=== PATIENT | male | born 1935 | race Caucasian/White ===

== ENCOUNTER 2018-05-05 16:21 | Observation (INO) | payer OTHER ==
[2018-05-05] MEDS ORDERED: NA CHLORIDE 0.9% 1,000 ML ONE (16:55)
[2018-05-05 17:17] LABS: Absolute Lymphocytes (CBC) 1.7 K/uL (0.7-4.9); Absolute Monocytes 0.6 K/uL (0.1-1.3); Absolute Neutrophil 6.3 K/uL (1.8-8.0); Basophils % 0.5 % (0-1.3); Eosinophils % 1.1 % (0-4.4); Hematocrit 43.2 % (39.6-49.0); Lymphocytes % 19.6 % (15.3-44.8); MPV 9.5 fL (7.6-11.3); Monocytes % 6.6 % (3.3-12.3); RBC Red Blood Cell Count 5.21 M/uL (4.33-5.43)
[2018-05-05 17:18] LABS: Protime INR 1.26
[2018-05-05 17:22] LABS: ALT/SGPT 35 U/L (12-78); AST/SGOT 23 U/L (15-37); Albumin 3.8 g/dL (3.4-5.0); Alkaline Phosphatase 75 U/L (45-117); BUN Blood Urea Nitrogen 23 mg/dL (7-18); Bicarbonate 25 mmol/L (21-32); Bilirubin Direct 0.1 mg/dL (0-0.2); Bilirubin Total 0.4 mg/dL (0.2-1.0); Glucose Level 120 mg/dL (74-106); Lipase 80 U/L (73-393); Magnesium 2.5 mg/dL (1.8-2.4); NT PRO-BNP 68 pg/mL (<450); Potassium 3.7 mmol/L (3.5-5.1); Protein, Total 7.2 g/dL (6.4-8.2); Sodium Level 140 mmol/L (136-145); Troponin (Emerg Dept Use Only) < 0.02 ng/mL (0.0-0.045)
[2018-05-05] MEDS ORDERED: METOPROLOL TARTRATE 5 MG/5 ML INJ IV ONE (17:22)
[2018-05-05] MEDS ORDERED: METOPROLOL TAR 50 MG TAB ONE (17:22)
--- NOTE | 2018-05-05 17:29 | RAD REPORT ---
EXAM DESCRIPTION: RAD - Chest Single View - 05/05/2018 5:13 pm CLINICAL HISTORY: Weakness, shortness of breath, dizziness, tachycardia COMPARISON: December 2014 TECHNIQUE: AP portable chest image was obtained 1704 hours . FINDINGS: No failure or volume overload seen. No focal lung parenchymal process. Interstitial markin gs are similar to the comparison. Heart size and vasculature are normal range and stable. No measurab le pleural effusion and no pneumothorax. No acute bony abnormality seen. No acute aortic findings iwona pected. IMPRESSION: No acute cardiopulmonary process. No significant change from comparison.
--- NOTE | 2018-05-05 17:34 | EDPHYS ---
Physician Documentation [facility] Name: Brenden Hunter Age: 82 yrs Sex: Male : 1935 Arrival Date: 05/05/2018 Time: 16:27 Bed 7 Private MD: Jonas Potts ED Physician Arturo Mares HPI: 05/05 16:42 This 82 yrs old Male presents to ER via Ambulatory with complaints of High abi heart rate. 16:42 The patient has shortness of breath at rest, with light activity. Onset: The abi symptoms/episode began/occurred just prior to arrival. Duration: The symptoms are continuous, resolved now. The patient's shortness of breath has no apparent modifying factors. The patient or guardian reports chest pain that is located primarily in the racing heart. Onset: just prior to arrival. The patient presents with a history of irregular heart beat. Context: The symptoms occur with light activity. Modifying factors: The symptoms are aggravated by nothing. The symptoms are alleviated by nothing. Historical: - Allergies: 16:34 No Known Allergies; sg - PMHx: 16:31 Atrial Fib; Cancer; Hypertension; MRSA INFECTION; sg - PSHx: 16:31 bladder sx; Hernia repair; SHOULDER REPLACEMENT; sg - Immunization history:: Adult Immunizations. - Social history:: Smoking status: Patient/guardian denies using tobacco. - Ebola Screening: : Patient negative for fever greater than or equal to 101.5 degrees Fahrenheit, and additional compatible Ebola Virus Disease symptoms Patient denies exposure to infectious person Patient denies travel to an Ebola-affected area in the 21 days before illness onset No symptoms or risks identified at this time. - Family history:: not pertinent. ROS: 16:42 Constitutional: Negative for fever, chills, and weight loss, Eyes: Negative for injury, abi pain, redness, and discharge, ENT: Negative for injury, pain, and discharge, Neck: Negative for injury, pain, and swelling, Abdomen/GI: Negative for abdominal pain, nausea, vomiting, diarrhea, and constipation, Back: Negative for injury and pain, : Negative for injury, bleeding, discharge, and swelling, MS/Extremity: Negative for injury and deformity, Skin: Negative for injury, rash, and discoloration, Neuro: Negative for headache, weakness, numbness, tingling, and seizure, Psych: Negative for depression, anxiety, suicide ideation, homicidal ideation, and hallucinations, Allergy/Immunology: Negative for hives, rash, and allergies, Endocrine: Negative for neck swelling, polydipsia, polyuria, polyphagia, and marked weight changes, Hematologic/Lymphatic: Negative for swollen nodes, abnormal bleeding, and unusual bruising. 16:42 Cardiovascular: Positive for palpitations. 16:42 Respiratory: Positive for shortness of breath. Exam: 16:44 Constitutional: This is a well developed, well nourished patient who is awake, alert, abi and in no acute distress. Head/Face: Normocephalic, atraumatic. Eyes: Pupils equal round and reactive to light, extra-ocular motions intact. Lids and lashes normal. Conjunctiva and sclera are non-icteric and not injected. Cornea within normal limits. Periorbital areas with no swelling, redness, or edema. ENT: Nares patent. No nasal discharge, no septal abnormalities noted. Tympanic membranes are normal and external auditory canals are clear. Oropharynx with no redness, swelling, or masses, exudates, or evidence of obstruction, uvula midline. Mucous membranes moist. Neck: Trachea midline, no thyromegaly or masses palpated, and no cervical lymphadenopathy. Supple, full range of motion without nuchal rigidity, or vertebral point tenderness. No Meningismus. Chest/axilla: Normal chest wall appearance and motion. Nontender with no deformity. No lesions are appreciated. Cardiovascular: Regular rate and rhythm with a normal S1 and S2. No gallops, murmurs, or rubs. Normal PMI, no JVD. No pulse deficits. Respiratory: Lungs have equal breath sounds bilaterally, clear to auscultation and percussion. No rales, rhonchi or wheezes noted. No increased work of breathing, no retractions or nasal flaring. Abdomen/GI: Soft, non-tender, with normal bowel sounds. No distension or tympany. No guarding or rebound. No evidence of tenderness throughout. Back: No spinal tenderness. No costovertebral tenderness. Full range of motion. Skin: Warm, dry with normal turgor. Normal color with no rashes, no lesions, and no evidence of cellulitis. MS/ Extremity: Pulses equal, no cyanosis. Neurovascular intact. Full, normal range of motion. Neuro: Awake and alert, GCS 15, oriented to person, place, time, and situation. Cranial nerves II-XII grossly intact. Motor strength 5/5 in all extremities. Sensory grossly intact. Cerebellar exam normal. Normal gait. Psych: Awake, alert, with orientation to person, place and time. Behavior, mood, and affect are within normal limits. Vital Signs: 16:33 BP 150 / 79; Pulse 71 MON; Resp 18 S; Temp 97.7; Pulse Ox 99% on R/A; Weight 111.13 kg; sg Height 6 ft. 1 in. (185.42 cm); Pain 10/10; 16:45 BP 152 / 87; Pulse 95; Resp 21; Pulse Ox 99% ; Pain 0/10; jl7 17:07 BP 143 / 79; Pulse 71; Resp 18 S; Pulse Ox 99% on R/A; jl7 17:30 BP 144 / 85; Pulse 64; Resp 16 S; Pulse Ox 95% on R/A; jl7 18:00 BP 129 / 74; Pulse 79; Resp 16 S; Pulse Ox 95% on R/A; Pain 0/10; jl7 16:33 Body Mass Index 32.32 (111.13 kg, 185.42 cm) sg MDM: 16:28 Patient medically screened. [facility] 16:44 Data reviewed: vital signs, nurses notes, lab test result(s), EKG, radiologic studies, abi plain films. 05/05 16:41 Order name: Basic Metabolic Panel; Complete Time: 17:29 [facility] 05/05 16:41 Order name: CBC with Diff; Complete Time: 17:31 [facility] 05/05 16:41 Order name: LFT's; Complete Time: 17:29 [facility] 05/05 16:41 Order name: Magnesium; Complete Time: 17:29 [facility] 05/05 16:41 Order name: NT PRO-BNP; Complete Time: 17:29 [facility] 05/05 16:41 Order name: PT-INR; Complete Time: 17:31 [facility] 05/05 16:41 Order name: Troponin (emerg Dept Use Only); Complete Time: 17:29 [facility] 05/05 16:41 Order name: XRAY Chest (1 view); Complete Time: 17:31 [facility] 05/05 16:41 Order name: TSH; Complete Time: 17:29 [facility] 05/05 16:41 Order name: Urine Culture [facility] 05/05 16:41 Order name: Lipase; Complete Time: 17:29 [facility] 05/05 17:04 Order name: Urine Dipstick--Ancillary (enter results) em1 05/05 16:41 Order name: EKG; Complete Time: 16:42 [facility] 05/05 16:41 Order name: Cardiac monitoring; Complete Time: 16:43 [facility] 05/05 16:41 Order name: EKG - Nurse/Tech; Complete Time: 16:43 [facility] 05/05 16:41 Order name: IV Saline Lock; Complete Time: 16:43 [facility] 05/05 16:41 Order name: Labs collected and sent; Complete Time: 16:43 [facility] 05/05 16:41 Order name: O2 Per Protocol; Complete Time: 16:43 [facility] 05/05 16:41 Order name: O2 Sat Monitoring; Complete Time: 16:43 [facility] 05/05 16:41 Order name: Urine Dipstick-Ancillary (obtain specimen); Complete Time: 17:02 [facility] 05/05 17:39 Order name: CONS Physician Consult EDMS Administered Medications: 16:47 Drug: NS 0.9% 1000 ml Route: IV; Rate: 75 ml/hr; Site: right antecubital; jl7 18:06 Follow up: Response: No adverse reaction; IV Status: Infusion continued upon admission jl7 17:11 Drug: Lopressor (metoprolol TARTRATE) 50 mg Route: PO; jl7 18:06 Follow up: Response: No adverse reaction; Cardiac rhythm changed jl7 17:13 Drug: Lopressor 2.5 mg Route: IVP; Site: right antecubital; jl7 17:30 Follow up: Response: No adverse reaction; Cardiac rhythm changed jl7 18:06 Not Given (Physician Discretion): Lopressor 2.5 mg IVP once; Hold for SBP <100 or HR jl7 <60. 18:15 Drug: Eliquis 5 mg Route: PO; jl7 18:16 Follow up: Response: No adverse reaction jl7 18:16 Drug: Lopressor 2.5 mg Route: IVP; Site: right antecubital; jl7 18:16 Follow up: Response: No adverse reaction jl7 Disposition: 05/05/18 17:33 Hospitalization ordered by Jonas Potts for Observation. Preliminary diagnosis are Atrial fibrillation and flutter, Weakness. - Bed requested for Telemetry/MedSurg (observation). - Status is Observation. jl7 - Condition is Fair. - Problem is new. - Symptoms have improved. UTI on Admission? No Signatures: Dispatcher [employer] EDMS Jeff Laws, RN Arturo Tucker MD MD cha Leal, Jahala, RN RN jl7 Suzan Feliz RN RN df Corrections: (The following items were deleted from the chart) 17:49 17:33 Hospitalization Ordered by Jonas Potts MD for Observation. Preliminary diagnosis df is Atrial fibrillation and flutter; Weakness. Bed requested for Telemetry/MedSurg (observation). Status is Observation. Condition is Fair. Problem is new. Symptoms have improved. UTI on Admission? No. [facility] 18:20 17:49 05/05/2018 17:33 Hospitalization Ordered by Jonas Potts MD for Observation. jl7 Preliminary diagnosis is Atrial fibrillation and flutter; Weakness. Bed requested for Telemetry/MedSurg (observation). Status is Observation. Condition is Fair. Problem is new. Symptoms have improved. UTI on Admission? No. df
--- NOTE | 2018-05-05 17:34 | ER ---
Nurse's Notes [facility] Name: Brenden Hunter Age: 82 yrs Sex: Male : 1935 Arrival Date: 05/05/2018 Time: 16:27 Bed 7 Private MD: Jonas Potts Diagnosis: Atrial fibrillation and flutter;Weakness Presentation: 05/05 16:31 Presenting complaint: Patient states: Shortness of breath, and dizziness, reported sg really fast hr on his watch and palpitations, Hx of Afib, /[facility]. Transition of care: patient was not received from another setting of care. Onset of symptoms was May 05, 2018. Risk Assessment: Do you want to hurt yourself or someone else? Patient reports no desire to harm self or others. Initial Sepsis Screen: Does the patient meet any 2 criteria? No. Patient's initial sepsis screen is negative. Does the patient have a suspected source of infection? No. Patient's initial sepsis screen is negative. Care prior to arrival: None. 16:31 Method Of Arrival: Ambulatory sg 16:31 Acuity: YANY 2 sg Historical: - Allergies: 16:34 No Known Allergies; sg - PMHx: 16:31 Atrial Fib; Cancer; Hypertension; MRSA INFECTION; sg - PSHx: 16:31 bladder sx; Hernia repair; SHOULDER REPLACEMENT; sg - Immunization history:: Adult Immunizations. - Social history:: Smoking status: Patient/guardian denies using tobacco. - Ebola Screening: : Patient negative for fever greater than or equal to 101.5 degrees Fahrenheit, and additional compatible Ebola Virus Disease symptoms Patient denies exposure to infectious person Patient denies travel to an Ebola-affected area in the 21 days before illness onset No symptoms or risks identified at this time. - Family history:: not pertinent. Screenin:07 Abuse screen: Denies threats or abuse. Denies injuries from another. Nutritional jl7 screening: No deficits noted. Tuberculosis screening: No symptoms or risk factors identified. Fall Risk IV access (20 points). Total [place] Fall Scale indicates No Risk (0-24 pts). Assessment: 16:35 General: Appears in no apparent distress. uncomfortable, Behavior is calm, cooperative, jl7 appropriate for age, anxious. Pain: Denies pain. Neuro: Level of Consciousness is awake, alert, obeys commands, Oriented to person, place, time, situation. Cardiovascular: Heart tones S2 present Patient's skin is warm and dry. Rhythm is atrial fibrillation with rapid ventricular response. Respiratory: Airway is patent Respiratory effort is even, unlabored, Respiratory pattern is regular, symmetrical, Breath sounds are clear bilaterally. GI: No signs and/or symptoms were reported involving the gastrointestinal system. : No signs and/or symptoms were reported regarding the genitourinary system. EENT: No signs and/or symptoms were reported regarding the EENT system. Derm: Skin is pink, warm \\T\\ dry. Musculoskeletal: No signs and/or symptoms reported regarding the musculoskeletal system. 17:30 Reassessment: Patient appears in no apparent distress at this time. Patient and/or jl7 family updated on plan of care and expected duration. Pain level reassessed. Patient is alert, oriented x 3, equal unlabored respirations, skin warm/dry/pink. 18:19 Reassessment: Pt was about to be transported to floor, pt reported "I can feel the a. jl7 fib starting back up again. Hooked pt back up to bedside monitor and pt's HR was 98 bpm, Pt denies shortness of breath and chest pain. Administered 2.5 mg Lopressor IVP at this time. Vital Signs: 16:33 BP 150 / 79; Pulse 71 MON; Resp 18 S; Temp 97.7; Pulse Ox 99% on R/A; Weight 111.13 kg; sg Height 6 ft. 1 in. (185.42 cm); Pain 10/10; 16:45 BP 152 / 87; Pulse 95; Resp 21; Pulse Ox 99% ; Pain 0/10; jl7 17:07 BP 143 / 79; Pulse 71; Resp 18 S; Pulse Ox 99% on R/A; jl7 17:30 BP 144 / 85; Pulse 64; Resp 16 S; Pulse Ox 95% on R/A; jl7 18:00 BP 129 / 74; Pulse 79; Resp 16 S; Pulse Ox 95% on R/A; Pain 0/10; jl7 16:33 Body Mass Index 32.32 (111.13 kg, 185.42 cm) ED Course: 16:27 Patient arrived in ED. mr 16:28 Jonas Potts MD is Private Physician. mr 16:28 Arturo Mares MD is Attending Physician. abi 16:30 Patient has correct armband on for positive identification. Placed in gown. Bed in low jl7 position. Call light in reach. Side rails up X 1. bus monitor on. Pulse ox on. NIBP on. Warm blanket given. 16:32 Triage completed. sg 16:33 Arm band placed on. sg 16:34 Inserted saline lock: 20 gauge in right antecubital area, using aseptic technique. jb1 16:37 Natan Austin RN is Primary Nurse. jl7 16:42 Initial lab(s) drawn, by nd, sent to lab. jb1 16:42 EKG done, by diploma pharmacy technician. reviewed by Arturo Mares MD. jb1 17:12 X-ray completed. Portable x-ray completed in exam room. Patient tolerated procedure sw well. 17:13 XRAY Chest (1 view) In Process Unspecified. EDMD 17:33 Jonas Potts MD is Hospitalizing Provider. [facility] 18:07 No provider procedures requiring assistance completed. Patient admitted, IV remains in jl7 place. intact, No redness/swelling at site. Administered Medications: 16:47 Drug: NS 0.9% 1000 ml Route: IV; Rate: 75 ml/hr; Site: right antecubital; jl7 18:06 Follow up: Response: No adverse reaction; IV Status: Infusion continued upon admission jl7 17:11 Drug: Lopressor (metoprolol TARTRATE) 50 mg Route: PO; jl7 18:06 Follow up: Response: No adverse reaction; Cardiac rhythm changed jl7 17:13 Drug: Lopressor 2.5 mg Route: IVP; Site: right antecubital; jl7 17:30 Follow up: Response: No adverse reaction; Cardiac rhythm changed jl7 18:06 Not Given (Physician Discretion): Lopressor 2.5 mg IVP once; Hold for SBP <100 or HR jl7 <60. 18:15 Drug: Eliquis 5 mg Route: PO; jl7 18:16 Follow up: Response: No adverse reaction jl7 18:16 Drug: Lopressor 2.5 mg Route: IVP; Site: right antecubital; jl7 18:16 Follow up: Response: No adverse reaction jl7 Outcome: 17:33 Decision to Hospitalize by Provider. abi 18:07 Admitted to Tele accompanied by tech, via wheelchair, room 215, with chart, Report jl7 called to REY Sapp 18:07 Condition: stable 18:07 Discharge instructions given to patient, family, Instructed on the need for admit, Demonstrated understanding of instructions. 18:20 Patient left the ED. jl7 Signatures: Dispatcher [employer] EDPiero Payton Steven, Arturo Tucker RN, MD MD cha Rivera, Mary mr Warren, Shannon sw Leal, Jahala, RN RN jl7
[2018-05-05] MEDS ORDERED: APIXABAN 5 MG TABLET PO ONE (19:00)
[2018-05-05 19:02] LABS: Urine Blood NEGATIVE (NEG); Urine Glucose NEGATIVE (NEG); Urine Protein NEGATIVE (NEG); Urine pH 5.5 (5.0-7.0)
[2018-05-05] MEDS ORDERED: MORPHINE 4 MG/ML SYR IV PRN (19:20)
[2018-05-05] MEDS ORDERED: ACETAMINOPHEN 500 MG TAB PO PRN (19:20)
[2018-05-05] MEDS ORDERED: ONDANSETRON 4 MG/2 ML VIAL IV PRN (19:20)
[2018-05-05] MEDS: SOTALOL HCL 80 MG TAB PO SCH (19:49)
[2018-05-05 19:56] VITALS: BMI 29.9
[2018-05-05] MEDS: FAMOTIDINE 20 MG/2 ML VIAL IV SCH (20:32)
[2018-05-06 05:35] LABS: Absolute Lymphocytes (CBC) 1.6 K/uL (0.7-4.9); Absolute Monocytes 0.6 K/uL (0.1-1.3); Absolute Neutrophil 3.6 K/uL (1.8-8.0); Basophils % 0.7 % (0-1.3); Eosinophils % 1.7 % (0-4.4); Hematocrit 41.3 % (39.6-49.0); Lymphocytes % 27.5 % (15.3-44.8); MPV 9.2 fL (7.6-11.3); Monocytes % 9.9 % (3.3-12.3); RBC Red Blood Cell Count 5.03 M/uL (4.33-5.43)
[2018-05-06 05:50] LABS: Potassium 3.6 mmol/L (3.5-5.1)
[2018-05-06] MEDS: SOTALOL HCL 80 MG TAB PO SCH (06:00)
--- NOTE | 2018-05-06 06:24 | EKG ---
Test Date: 2018-05-05 Test Time: 16:56:53 Barrel Charrer Helper: MEASUREMENT RESULTS: Intervals: Rate: 106 PA: QRSD: 168 QT: 358 QTc: 475 [place]: P: PA: QRS: 97 T: -5 INTERPRETIVE STATEMENTS: Atrial fibrillation with rapid ventricular response Right bundle branch block Abnormal ECG Compared to ECG 05/05/2018 16:32:59 Sinus rhythm no longer present Sinus arrhythmia no longer present T-wave abnormality no longer present Possible ischemia no longer present Electronically Signed On 05-06-18 06:13:30 DIRECTOR OF OCCUPATIONAL HEALTH by Alonso Jackson
--- NOTE | 2018-05-06 06:24 | EKG ---
Test Date: 2018-05-05 Test Time: 16:32:59 Motor Generator Set Operator: VIC MEASUREMENT RESULTS: Intervals: Rate: 71 LA: 188 QRSD: 164 QT: 452 QTc: 491 [place]: P: 23 LA: 188 QRS: 56 T: -13 INTERPRETIVE STATEMENTS: Normal sinus rhythm with sinus arrhythmia Right bundle branch block T wave abnormality, consider inferior ischemia Abnormal ECG Compared to ECG 01/01/2015 06:31:25 T-wave abnormality now present Possible ischemia now present Sinus bradycardia no longer present Electronically Signed On 05-06-18 06:13:40 AUTO TECH by Alonso Jackson
[2018-05-06] MEDS ORDERED: APIXABAN 5 MG TABLET PO SCH (07:00)
--- NOTE | 2018-05-06 08:42 | RAD REPORT ---
EXAM DESCRIPTION: Shavon Single View05/06/2018 6:49 am CLINICAL HISTORY: Chest pain COMPARISON: May 05, 2018 FINDINGS: The lungs appear clear of acute infiltrate. The heart is normal size IMPRESSION: No acute abnormalities displayed
[2018-05-06] MEDS: FAMOTIDINE 20 MG/2 ML VIAL IV SCH (08:51)
--- NOTE | 2018-05-06 09:37 | EKG ---
Test Date: 2018-05-06 Test Time: 09:09:18 Continuity Editor: BETSY MEASUREMENT RESULTS: Intervals: Rate: 56 RI: 186 QRSD: 164 QT: 470 QTc: 453 Maria Stein: P: 50 RI: 186 QRS: 14 T: 13 INTERPRETIVE STATEMENTS: Sinus bradycardia with marked sinus arrhythmia Right bundle branch block Abnormal ECG Compared to ECG 05/05/2018 16:56:53 Atrial fibrillation no longer present Electronically Signed On 05-06-18 09:37:18 HAND CELL TUBER by Alonso Jackson
--- NOTE | 2018-05-06 13:43 | CON ---
Chief Complaint: Trouble breathing. History Of Present Illness: Mr. Hunter has a history of atrial fibrillation. When he goes into atria l fibrillation, he gets out of breath. He is now back in normal rhythm and feels better. In order t o treat his atrial fibrillation, we have had him on Eliquis 5 b.i.d. and sotalol 80 b.i.d. That has been working well, but he is having atrial fibrillation spells every once in a while. He is also hyp ertensive while on Betapace 80. Since he is in sinus rhythm now, I think he could be discharged home fairly soon, but I would recommend we increase the dose of Betapace to 120 b.i.d. If that is intole rable to him or it fails to control his rhythm, he will be referred for ablation. The patient does n ot have CAD. He has a history of a normal cardiac cath very recently. Physical Examination: General: He is 6 feet 4 inches, 245 pounds. HEENT: Normal. Lungs: Clear. Heart: Regular rate and rhythm. Recommendation: I will recommend, we increase the dose of Betapace to 120 b.i.d., and he could be di scharged whenever Dr. Potts is ready. LUIS ALBERTO/KENL Voice ID: [id number] Report ID: [id number]
[2018-05-06 14:35] VITALS: O2SAT 97
--- NOTE | 2018-05-06 14:45 | ECHO ---
HEIGHT: 6 ft 4 in WEIGHT: 245 lb 14.4 oz DATE OF STUDY: 05/06/[address]: Arturo Mares MD 2-DIMENSIONAL: YES M.MODE: YES DOPPLER: YES COLOR FLOW: YES TDS: PORTABLE: DEFINITY: BUBBLE STUDY: DIAGNOSIS: CONGESTIVE HEART FAILURE CARDIAC HISTORY: CATHERIZATION: NO SURGERY: NO PROSTHETIC VALVE: NO PACEMAKER: NO MEASUREMENTS (cm) DIASTOLIC (NORMALS) SYSTOLIC (NORMALS) IVSd 1.1 (0.6-1.2) LA Diam (1.9-4.0) LVEF 78% LVIDd 4.6 (3.5-5.7) LVIDs 2.5 (2.0-3.5) %FS 46% LVPWd 1.3 (0.6-1.2) Ao Diam 2.9 (2.0-3.7) 2 DIMENSIONAL ASSESSMENT: RIGHT ATRIUM: NORMAL LEFT ATRIUM: NORMAL RIGHT VENTRICLE: NORMAL LEFT VENTRICLE: NORMAL TRICUSPID VALVE: NORMAL MITRAL VALVE: NORMAL PULMONIC VALVE: NORMAL AORTIC VALVE: NORMAL PERICARDIAL EFFUSION: NONE AORTIC ROOT: NORMAL LEFT VENTRICULAR WALL MOTION: NORMAL DOPPLER/COLOR FLOW: NORMAL COMMENTS: NORMAL 2-DIMENSIONAL ECHOCARDIOGRAM WITH DOPPLER. TECHNOLOGIST: BETH VELASCO
[2018-05-06 16:58] VITALS: BP 115/70; TEMP 97
[2018-05-06] MEDS ORDERED: SOTALOL HCL 80 MG TAB PO SCH (18:00)
--- NOTE | 2018-05-30 00:23 | HP ---
Date of Admission: 05/05/2018 Chief Complaint: Palpitation. History Of Present Illness: This is an 82-year-old male patient, who has history of atrial fibrillat ion. Has done well on his medication, takes his sotalol regularly and anticoagulant medication, Eliq uis on a regular basis. He was doing fine until recently started to have this problem with palpitati on associated with some shortness of breath feeling, came into emergency room and after he was joseph murphy, he was admitted to the hospital under my service with this problem of atrial fibrillation. When I saw him, he was feeling fine, did not have any complaints at that particular time. Denies any fev er, chills, cough, cold or congestion, nausea, vomiting, etc. Allergies: NO KNOWN ALLERGIES. Review of Systems: Cardiovascular: As mentioned above. Respiratory: As mentioned above. All other systems reviewed and negative. Medications: List reviewed that includes Eliquis 5 mg twice a day, sotalol 80 mg twice a day, hydroc hlorothiazide 25 mg daily, levothyroxine 50 mcg daily, lisinopril 20 mg 2 times a day, omeprazole 40 mg daily. Past Medical History: Significant for paroxysmal atrial fibrillation, hypertension, type 2 diabetes mellitus, hyperlipidemia, hypothyroidism, benign prostatic hypertrophy, gastroesophageal reflux disea se, and diverticulosis. Past Surgical History: Left shoulder replacement, surgery for malignant bladder tumor in 1985, tonsi llectomy, teeth extraction. Family History: Significant for osteoporosis, congestive heart failure, testicular cancer. Social History: Occasional smoking. Use of alcohol, negative. Physical Examination: Vital Signs: Initial vital signs when patient first came into emergency room, temperature 97.7, puls e 71, respiratory rate 18, blood pressure 150/79, height 6 feet 4 inches, weight 245 pounds. General: Awake, alert, oriented, not in distress. HEENT: Head atraumatic, normocephalic. Conjunctivae nonerythematous. Sclerae white. Mouth, no thr ush or edema noted. Ears/Nose, no mass, lesion, discharge noted. Neck: Supple. No JVD, lymph nodes, bruit, thyromegaly noted. Lungs: Bilateral good equal air entry. Clear to auscultation. No rhonchi. No rales. Heart: Normal heart sounds, no murmur or gallop. Abdomen: Soft, bowel sounds normal. No guarding, rigidity, tenderness, mass, hepatosplenomegaly, dis tention, or bruit noted. Extremities: No leg edema. No calf tenderness. Skin: No rash, ulcer, cellulitis. Lymphatics: No lymph node enlargement in neck, supraclavicular, infraclavicular region. Neuro: No focal neurological deficit. Chest: Unremarkable. External Genitalia: Deferred. Rectal: Deferred. Laboratory Data: EKG shows atrial fibrillation. Chest x-ray, no acute cardiopulmonary changes noted . White count 8.7, hemoglobin 14.3, platelets 231. Sodium 140, potassium 3.7, chloride 107, bicarb 25, BUN 23, creatinine 1.20, glucose 120. Liver function tests unremarkable. TSH 3.3. Troponin les s than 0.02. Impression: 1.Paroxysmal atrial fibrillation. 2.Hypertension. 3.Hyperlipidemia. 4.Hypothyroidism. 5.Gastroesophageal reflux disease. 6.Benign prostatic hypertrophy. Plan: Admit the patient to hospital for further evaluation and management of this problem. We will admit patient to hospital to telemetry floor. Continue home medications per order. Consult Cardiolo gy for further evaluation and management of this paroxysmal atrial fibrillation problem. Continue hi s anticoagulation medication that he takes at home, which is Eliquis and home medications will be con tinued per order. We will get an echocardiogram on him and I will see him tomorrow for followup. De tails and plan of treatment discussed with the patient. CHRISTINE/MODL Voice ID: [id number]
--- NOTE | 2018-05-30 01:55 | DS ---
Date of Discharge: 05/06/2018 Disposition: Discharged to go home. Physical Examination: HEENT: Unremarkable. Lungs: Clear to auscultation. Heart: Sounds normal. Abdomen: Soft. Bowel sounds normal. No guarding, rigidity, tenderness, or distention. Extremities: No leg edema. Hospital Course: An 82-year-old male patient who was admitted to the hospital with palpitation and shortness of breath associated with palpitation problem. Please see dictated H and P for more information. After he was evaluated in the ER, he was admitted to the hospital. Cardiology consultation was obtained. [place] was ruled out by getting serial cardiac enzymes. His condition was clinically stable. Shipping/Receiving Clerk has released him to go home from Cardiology point of view with instruction to increase the dose of sotalol. He was taking 80 mg twice a day, instead of that personal service representative wants him to increase dose to 120 mg twice a day. The patient did have problem with bradycardia during nighttime while he was sleeping and he was asymptomatic. His heart rate had dropped down into 34 beats to 38 beats per minute range and I did talk to personal service representative myself about that. Since he recommended to increase the dose of sotalol and the recommendation is not to worry about that nighttime bradycardia and to go ahead and increase the dose of sotalol to 120 mg twice a day and he will follow up on outpatient basis. The patient was medically stable for discharge and he was discharged to go home with instruction to continue all his previously prescribed home medication except stop sotalol 80 mg dose and to increase the dose of sotalol to 120 mg 2 times a day. Follow up with Dr. Jackson in 2 weeks and follow up at my office in 3 weeks. Discharge Diagnoses: 1. Paroxysmal atrial fibrillation. 2. Hypertension. 3. Hyperlipidemia. 4. Hypothyroidism. 5. Gastroesophageal reflux disease. 6. Benign prostatic hypertrophy. CHRISTINE/MODL Voice ID: [id number] Report ID: [id number]
== END 2018-05-06 18:05 | disposition home or self-care (01) ==
LOC: ER 16:21 → ERHOLD 17:36 → 2ND 18:00
PROVIDERS: ADMIT Internal Medicine; ATTEND Internal Medicine
DX: I48.0 Paroxysmal atrial fibrillation (principal); I10 Essential (primary) hypertension; E78.5 Hyperlipidemia, unspecified; E03.9 Hypothyroidism, unspecified; K21.9 Gastro-esophageal reflux disease without esophagitis; N40.0 Benign prostatic hyperplasia without lower urinary tract symptoms; E11.9 Type 2 diabetes mellitus without complications; Z79.01 Long term (current) use of anticoagulants
CPT/HCPCS: 36415; 71045 ×2; 80048 ×2; 80076; 81003; 83690; 83735; 83880; 84443; 84484 ×3; 85025 ×2; 85610; 87088; 93005 ×3; 93306; 96361; 96374; 99285; G0378 ×2; J7030; 87086

== ENCOUNTER 2018-09-08 08:53 | Emergency (ER) | payer OTHER ==
--- NOTE | 2018-09-08 11:01 | RAD REPORT ---
EXAM DESCRIPTION: RAD - Ribs Left - 09/08/2018 10:42 am CLINICAL HISTORY: PAIN Left-sided rib pain. COMPARISON: Chest Single View dated 05/06/2018 FINDINGS: A lucency is present in the lateral eighth rib suspicious for a nondisplaced fracture.
--- NOTE | 2018-09-08 11:08 | EDPHYS ---
Physician Documentation [facility] Name: Brenden Hunter Age: 82 yrs Sex: Male : 1935 Arrival Date: 09/08/2018 Time: 08:55 Bed 8 Private MD: Jonas Potts ED Physician Glenn Ace HPI: 09/08 09:28 This 82 yrs old Male presents to ER via Ambulatory with complaints of Fall cp Injury. 09:28 Details of fall: The patient fell from an upright position, while walking, and while cp carrying mattress, and struck wooden chair. Onset: The symptoms/episode began/occurred 3 day(s) ago. Associated injuries: The patient sustained injury to the chest, specifically the left lateral lower rib area, pain with breathing, pain with movement, swelling, tenderness. 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 - Social history:: Smoking status: Patient/guardian denies using tobacco, but has a distant history of tobacco abuse. - Ebola Screening: : No symptoms or risks identified at this time. ROS: 09:35 Constitutional: Negative for body aches, chills, fever, poor PO intake. cp 09:35 Eyes: Negative for injury, pain, redness, and discharge. cp 09:35 ENT: Negative for drainage from ear(s), ear pain, sore throat, difficulty swallowing, difficulty handling secretions. 09:35 Cardiovascular: Positive for chest pain, of the left lower rib area, Negative for edema, palpitations. 09:35 Respiratory: Negative for cough, shortness of breath, wheezing. 09:35 Abdomen/GI: Negative for abdominal pain, nausea, vomiting, and diarrhea, constipation, black/tarry stool, rectal bleeding. 09:35 Back: Negative for pain at rest, pain with movement. 09:35 Skin: Negative for cellulitis, rash. 09:35 Neuro: Negative for altered mental status, loss of consciousness, syncope, weakness. 09:35 All other systems are negative. Exam: 09:45 Constitutional: The patient appears in no acute distress, alert, awake, non-toxic, well cp developed, well nourished, uncomfortable. 09:45 Head/Face: Normocephalic, atraumatic. cp 09:45 Eyes: Periorbital structures: appear normal, Conjunctiva: normal, Sclera: no appreciated abnormality, Lids and lashes: appear normal, bilaterally. 09:45 ENT: External ear(s): are unremarkable, Nose: is normal, Mouth: Lips: moist, Oral cp mucosa: pink and intact, moist, Posterior pharynx: is normal, airway is patent, no erythema, no exudate. 09:45 Neck: C-spine: vertebral tenderness, is not appreciated, crepitus, is not appreciated, ROM/movement: is normal, is supple, without pain, no range of motions limitations, no nuchal rigidity. 09:45 Chest/axilla: Inspection: ecchymosis, that is mild, of the left lower lateral rib area flail chest, is not appreciated, paradoxical chest wall movements, are not appreciated, Palpation: crepitus, is not appreciated, tenderness, that is moderate, of the left lateral lower rib area, that partially reproduces the patient's complaints. 09:45 Cardiovascular: Rate: normal, Rhythm: regular, Edema: is not appreciated, JVD: is not appreciated. 09:45 Respiratory: the patient does not display signs of respiratory distress, Respirations: normal, no use of accessory muscles, no retractions, no splinting, no tachypnea, labored breathing, is not present, Breath sounds: are clear throughout, no decreased breath sounds, no stridor, no wheezing. 09:45 Abdomen/GI: Inspection: abdomen appears normal, Bowel sounds: active, all quadrants, Palpation: abdomen is soft and non-tender, in all quadrants, rebound tenderness, is not appreciated, voluntary guarding, is not appreciated, involuntary guarding, is not appreciated. 09:45 Back: vertebral tenderness, is not appreciated, muscle spasm, is not present. 09:45 Skin: no rash present. 09:45 Neuro: Orientation: to person, place \T\ time. Mentation: is normal, Motor: moves all fours, strength is normal, Sensation: is normal, Gait: is steady, at a normal pace, without difficulty. Vital Signs: 09:05 BP 147 / 69; Pulse 66; Resp 18 S; Temp 97.9(O); Pulse Ox 99% on R/A; Weight 102.06 kg aa5 (R); Height 6 ft. 4 in. (193.04 cm) (R); Pain 0/10; 10:05 BP 107 / 70; Pulse 67; Resp 16 S; Pulse Ox 98% on R/A; Pain 0/10; aa5 11:05 BP 110 / 68; Pulse 61; Resp 16 S; Temp 98.0(TE); Pulse Ox 100% on R/A; Pain 0/10; aa5 09:05 Body Mass Index 27.39 (102.06 kg, 193.04 cm) aa5 [place] Coma Score: 09:05 Eye Response: spontaneous(4). Verbal Response: oriented(5). Motor Response: obeys aa5 commands(6). Total: 15. 10:05 Eye Response: spontaneous(4). Verbal Response: oriented(5). Motor Response: obeys aa5 commands(6). Total: 15. Trauma Score (Adult): 09:05 Eye Response: spontaneous(1); Verbal Response: oriented(1); Motor Response: obeys aa5 commands(2); Systolic BP: > 89 mm Hg(4); Respiratory Rate: 10 to 29 per min(4); [place] Score: 15; Trauma Score: 12 10:05 Eye Response: spontaneous(1); Verbal Response: oriented(1); Motor Response: obeys aa5 commands(2); Systolic BP: > 89 mm Hg(4); Respiratory Rate: 10 to 29 per min(4); [place] Score: 15; Trauma Score: 12 11:05 Eye Response: spontaneous(1); Verbal Response: oriented(1); Motor Response: obkalpeshs aa5 commands(2); Systolic BP: > 89 mm Hg(4); Respiratory Rate: 10 to 29 per min(4); Silas Score: 15; Trauma Score: 12 MDM: 09:12 Patient medically screened. 10:00 Differential diagnosis: closed head injury, contusion, fracture, multiple trauma. 11:05 Data reviewed: vital signs, nurses notes, radiologic studies, plain films. 11:05 Counseling: I had a detailed discussion with the patient and/or guardian regarding: the cp historical points, exam findings, and any diagnostic results supporting the discharge/admit diagnosis, radiology results, the need for outpatient follow up, a family practitioner, to return to the emergency department if symptoms worsen or persist or if there are any questions or concerns that arise at home. Response to treatment: the patient's symptoms have mildly improved after treatment, and as a result, I will discharge patient. ED course: VSS. No signs of respiratory distress. Will discharge to home for continued monitoring. 09/08 09:27 Order name: XRAY Ribs LEFT: fall 3 days ago; Complete Time: 11:04 09/08 11:04 Interpretation: Report reviewed. 09/08 11:13 Order name: INCENTIVE SPIROMETRY Administered Medications: 11:08 CANCELLED (Patient Refused): Ibuprofen 800 mg PO once aa5 Disposition: 18:23 Co-signature as Attending Physician, Glenn Ace MD. Disposition: 09/08/18 11:07 Discharged to Home. Impression: Fracture of one rib, left side - eighth. - Condition is Stable. - Discharge Instructions: Rib Fracture. - Prescriptions for Ibuprofen 800 mg Oral Tablet - take 1 tablet by ORAL route every 8 hours As needed take with food; 30 tablet. Ultracet 37.5- 325 mg Oral Tablet - take 1 tablet by ORAL route every 6 hours - for up to 5 days; do not exceed 8 tablets per day.; 20 tablet. - Medication Reconciliation Form, Thank You Letter, Antibiotic Education, Prescription Opioid Use form. - Follow up: Private Physician; When: 2 - 3 days; Reason: Recheck today's complaints. - Problem is new. - Symptoms are unchanged. Signatures: Dispatcher [employer] Manuela Tyler RN RN aa5 Arturo Rollins PA PA cp Starr, Gregory, MD MD Corrections: (The following items were deleted from the chart) 11: 11:06 Ibuprofen 800 mg PO once ordered. cp aa5 11:08 11:09/08/2018 11:07 Discharged to Home. Impression: Fracture of one rib, right side. cp Condition is Stable. Forms are Medication Reconciliation Form, Thank You Letter, Antibiotic Education, Prescription Opioid Use. Follow up: Private Physician; When: 2 - 3 days; Reason: Recheck today's complaints. Problem is new. Symptoms are unchanged. cp 11:09 11:09/08/2018 11:07 Discharged to Home. Impression: Fracture of one rib, left side. cp Condition is Stable. Discharge Instructions: Rib Fracture. Prescriptions for Ibuprofen 800 mg Oral Tablet - take 1 tablet by ORAL route every 8 hours As needed take with food; 30 tablet, Ultracet 37.5-325 mg Oral Tablet - take 1 tablet by ORAL route every 6 hours - for up to 5 days; do not exceed 8 tablets per day.; 20 tablet. and Forms are Medication Reconciliation Form, Thank You Letter, Antibiotic Education, Prescription Opioid Use. Follow up: Private Physician; When: 2 - 3 days; Reason: Recheck today's complaints. Problem is new. Symptoms are unchanged. cp 11:36 11:09/08/2018 11:07 Discharged to Home. Impression: Fracture of one rib, left side - aa5 eighth. Condition is Stable. Discharge Instructions: Rib Fracture. Prescriptions for Ibuprofen 800 mg Oral Tablet - take 1 tablet by ORAL route every 8 hours As needed take with food; 30 tablet, Ultracet 37.5-325 mg Oral Tablet - take 1 tablet by ORAL route every 6 hours - for up to 5 days; do not exceed 8 tablets per day.; 20 tablet. and Forms are Medication Reconciliation Form, Thank You Letter, Antibiotic Education, Prescription Opioid Use. Follow up: Private Physician; When: 2 - 3 days; Reason: Recheck today's complaints. Problem is new. Symptoms are unchanged. cp
--- NOTE | 2018-09-08 11:08 | ER ---
Nurse's Notes [facility] Name: Brenden Hunter Age: 82 yrs Sex: Male : 1935 Arrival Date: 09/08/2018 Time: 08:55 Bed 8 Private MD: Jonas Potts Diagnosis: Fracture of one rib, left side-eighth Presentation: 09/08 09:05 Presenting complaint: Patient states: "I was helping my neighbor move a mattress on aa5 Wednesday and I was backing up with the mattress and came down a step and lost my balance and fell and hurt my left side on a table". Pt c/o pain to left anterior aspect of lower rib cage that began Wednesday post-fall. Denies head injury, denies LOC. Pt states "I take Eliquis and this morning I had chills so I thought maybe I am bleeding from somewhere". Denies fever, denies cough, denies congestion, denies recent illness. 09:05 Care prior to arrival: None. Mechanism of Injury: Fall from standing position. Trauma aa5 event details: Injury occurred in the [facility], Injury occurred: September 05, 2018. 09:05 Acuity: YANY 3 aa5 09:05 Method Of Arrival: Ambulatory aa5 09:08 Transition of care: patient was not received from another setting of care. Onset of aa5 symptoms was September 05, 2018. Risk Assessment: Do you want to hurt yourself or someone else? Patient reports no desire to harm self or others. Initial Sepsis Screen: Does the patient meet any 2 criteria? No. Patient's initial sepsis screen is negative. Does the patient have a suspected source of infection? No. Patient's initial sepsis screen is negative. Trauma Activation: Not Applicable Physician: ED Physician; Name: ; Notified At: ; Arrived At: Physician: General Surgeon; Name: ; Notified At: ; Arrived At: Physician: Radiology; Name: ; Notified At: ; Arrived At: Physician: Respiratory; Name: ; Notified At: ; Arrived At: Physician: Lab; Name: ; Notified At: ; Arrived At: Historical: - Allergies: 09:05 No Known Allergies; aa5 - Home Meds: 09:07 Eliquis 5 mg oral tab 2 times per day [Active]; sotalol 120 mg Oral tab 2 times per day aa5 [Active]; lisinopril 20 mg Oral tab once daily [Active]; hydrochlorothiazide 25 mg Oral tab once daily [Active]; levothyroxine 50 mcg tab once daily [Active]; omeprazole 20 mg Oral cpDR once daily [Active]; Tumeric curcumin daily [Active]; - PMHx: 09:05 Atrial Fib; Hypertension; Bladder Cancer; 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 - Social history:: Smoking status: Patient/guardian denies using tobacco, but has a distant history of tobacco abuse. - Ebola Screening: : No symptoms or risks identified at this time. Screenin:10 Abuse screen: Denies threats or abuse. Nutritional screening: No deficits noted. aa5 Tuberculosis screening: No symptoms or risk factors identified. Fall Risk Fall in past 12 months (25 points). No secondary diagnosis (0 pts). No IV (0 pts). Ambulatory Aid- None/Bed Rest/Nurse Assist (0 pts). Gait- Normal/Bed Rest/Wheelchair (0 pts) Mental Status- Oriented to own ability (0 pts). Total [place] Fall Scale indicates Low Risk Score (25-44 pts). Fall prevention measures have been instituted. Side Rails Up X 2. Primary Survey: 09:05 NO uncontrolled hemorrhage observed. A: The patient is alert. Airway: patent. aa5 Breathing/Chest: Respiratory pattern: regular, Respiratory effort: spontaneous, unlabored, Chest inspection: symmetrical rise and fall of the chest. Circulation: Skin color: pink. Disability Alert. Exposure/Environment: There is no evidence of uncontrolled external bleeding. 09:15 Reassessment Airway Airway Patent Breathing/Chest Chest inspection Symmetrical aa5 Circulation Color [place] Disability Alert. Secondary Survey: 09:05 HEENT: No deficits noted. Gastrointestinal: No deficits noted. : No deficits noted. aa5 Musculoskeletal: Reports pain in left anterior aspect of lower rib cage. Assessment: 09:07 General: Appears comfortable, Behavior is calm, cooperative. Pain: Complains of pain in aa5 left anterior aspect of lower rib cage Pain does not radiate. Pain currently is 0 out of 10 on a pain scale. at worst was 10 out of 10 on a pain scale. Quality of pain is described as sharp, Pain began 2-3 days ago. Is intermittent, Aggravated by increased activity, repositioning. Neuro: Level of Consciousness is awake, alert, obeys commands, Oriented to person, place, time, situation. EENT: No signs and/or symptoms were reported regarding the EENT system. Cardiovascular: Heart tones S1 S2 present Rhythm is irregular. Respiratory: Airway is patent Respiratory effort is even, unlabored, Respiratory pattern is regular, symmetrical, Breath sounds are clear bilaterally. GI: No signs and/or symptoms were reported involving the gastrointestinal system. : No signs and/or symptoms were reported regarding the genitourinary system. Derm: Skin is pink, warm \\T\\ dry. No bruising noted. Musculoskeletal: Range of motion: limited in left shoulder. 10:05 Reassessment: Patient is alert, oriented x 3, equal unlabored respirations, skin aa5 warm/dry/pink. Pt sitting up in bed watching TV, awaiting x-ray. . 11:00 Reassessment: Patient is alert, oriented x 3, equal unlabored respirations, skin aa5 warm/dry/pink. Pt back from x-ray, pt rates pain 0/10 on a pain scale at this time. . 11:30 Reassessment: Patient is alert, oriented x 3, equal unlabored respirations, skin aa5 warm/dry/pink. Vital Signs: 09:05 BP 147 / 69; Pulse 66; Resp 18 S; Temp 97.9(O); Pulse Ox 99% on R/A; Weight 102.06 kg aa5 (R); Height 6 ft. 4 in. (193.04 cm) (R); Pain 0/10; 10:05 BP 107 / 70; Pulse 67; Resp 16 S; Pulse Ox 98% on R/A; Pain 0/10; aa5 11:05 BP 110 / 68; Pulse 61; Resp 16 S; Temp 98.0(TE); Pulse Ox 100% on R/A; Pain 0/10; aa5 09:05 Body Mass Index 27.39 (102.06 kg, 193.04 cm) aa5 [place] Coma Score: 09:05 Eye Response: spontaneous(4). Verbal Response: oriented(5). Motor Response: obeys aa5 commands(6). Total: 15. 10:05 Eye Response: spontaneous(4). Verbal Response: oriented(5). Motor Response: obeys aa5 commands(6). Total: 15. Trauma Score (Adult): 09:05 Eye Response: spontaneous(1); Verbal Response: oriented(1); Motor Response: obeys aa5 commands(2); Systolic BP: > 89 mm Hg(4); Respiratory Rate: 10 to 29 per min(4); [place] Score: 15; Trauma Score: 12 10:05 Eye Response: spontaneous(1); Verbal Response: oriented(1); Motor Response: obeys aa5 commands(2); Systolic BP: > 89 mm Hg(4); Respiratory Rate: 10 to 29 per min(4); [place] Score: 15; Trauma Score: 12 11:05 Eye Response: spontaneous(1); Verbal Response: oriented(1); Motor Response: obeys aa5 commands(2); Systolic BP: > 89 mm Hg(4); Respiratory Rate: 10 to 29 per min(4); Silas Score: 15; Trauma Score: 12 ED Course: 08:55 Patient arrived in ED. mr 08:55 Jonas Potts MD is Private Physician. mr 09:04 Arm band placed on Patient placed in an exam room, on a stretcher. aa5 09:04 Patient has correct armband on for positive identification. Placed in gown. Bed in low aa5 position. Call light in reach. Side rails up X 1. 09:05 Patient maintains SpO2 saturation greater than 95% on room air. aa5 09:07 Manuela Flores, REY is Primary Nurse. aa5 09:10 Thermoregulation: Pt refused warm blanket. aa5 09:12 Arturo Rollins PA is PHCP. cp 09:12 Glenn Ace MD is Attending Physician. cp 09:22 Triage completed. aa5 10:41 Patient moved back from radiology. mh1 10:42 XRAY Ribs LEFT: fall 3 days ago In Process Unspecified. EDMS 11:30 No provider procedures requiring assistance completed. Patient did not have IV access aa5 during this emergency room visit. Administered Medications: 11:08 CANCELLED (Patient Refused): Ibuprofen 800 mg PO once aa5 Intake: 11:30 PO: 0ml; Total: 0ml. aa5 Outcome: 11:07 Discharge ordered by . cp 11:07 Patient's length of stay was not longer than 2 hours. aa5 11:30 Discharged to home ambulatory. aa5 11:30 Condition: good 11:30 Discharge instructions given to patient, Instructed on discharge instructions, follow up and referral plans. medication usage, use of incentive spirometer Demonstrated understanding of instructions, follow-up care, medications, Prescriptions given X 2. 11:36 Patient left the ED. aa5 Signatures: Dispatcher [employer] [facility] Elisabeth De Oliveira Martha 1 Manuela Flores, RN RN aa5 Arturo Rollins, PA PA cp Corrections: (The following items were deleted from the chart) 15:03 09:07 Musculoskeletal: Range of motion: intact in all extremities, aa5 aa5
[2018-09-08 13:04] VITALS: TEMP 97.9
[2018-09-08 13:06] VITALS: BP 107/70; O2SAT 98
== END 2018-09-08 11:36 | disposition home or self-care (01) ==
LOC: ER 08:53
DX: S22.32XA Fracture of one rib, left side, initial encounter for closed fracture (principal); W17.89XA Other fall from one level to another, initial encounter; Y93.89 Activity, other specified; Y92.009 Unspecified place in unspecified non-institutional (private) residence as the place of occurrence of the external cause; I10 Essential (primary) hypertension; I48.91 Unspecified atrial fibrillation
CPT/HCPCS: 99284

== ENCOUNTER 2018-09-18 15:02 | Emergency (ER) | payer OTHER ==
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
[2018-09-18] MEDS ORDERED: CEPHALEXIN 250 MG CAP ONE (17:06)
[2018-09-18] MEDS ORDERED: SILVER SULFADIAZINE 1% 25 GM TOP ONE (17:07)
[2018-09-18] MEDS ORDERED: TETANUS & DIPHTHERIA TOX,ADULT 0.5 ML VIAL ONE (17:07)
[2018-09-18 18:12] VITALS: BP 108/63; TEMP 97.6; O2SAT 98
== END 2018-09-18 17:13 | disposition home or self-care (01) ==
LOC: ER 15:02
DX: T23.201A Burn of second degree of right hand, unspecified site, initial encounter (principal); T23.271A Burn of second degree of right wrist, initial encounter; X08.8XXA Exposure to other specified smoke, fire and flames, initial encounter; I48.91 Unspecified atrial fibrillation; C67.9 Malignant neoplasm of bladder, unspecified; I10 Essential (primary) hypertension; Z23 Encounter for immunization
CPT/HCPCS: 90471; 90714; 99282